=== PATIENT | male | born 1990 | race Caucasian/White ===

== ENCOUNTER 2021-05-20 12:10 | Outpatient (CLI) | payer OTHER ==
[~2021-05-20 12:10] MED LIST: GADOBUTROL 7.5 MMOL/7.5 ML VIAL ONE; IOTHALAMATE MEGLUMINE 50 ML VIAL ONE; lidocaine 1% 20 ML MDV ONE
[2021-05-20] MEDS ORDERED: IOTHALAMATE MEGLUMINE 50 ML VIAL IVP ONE (13:05)
[2021-05-20] MEDS ORDERED: lidocaine 1% 20 ML MDV SUBQ ONE (13:07)
[2021-05-20] MEDS ORDERED: GADOBUTROL 7.5 MMOL/7.5 ML VIAL IVP ONE (13:09)
--- NOTE | 2021-05-20 14:45 | XRAY Report ---
PROCEDURE: Arthrogram Needle Placement INDICATIONS: INJURY OF MUSCLE AND TENDON LEFT SHOULDER TECHNIQUE: The indications, alternatives, benefits, risks, and complications of the procedure were explained to the patient. Written informed consent was obtained and placed in the chart. The shoulder was examin ed fluoroscopically and a site for needle placement chosen for entry into the glenohumeral joint from an anterior approach. The skin was prepped and draped in the usual fashion, and 1% lidocaine infilt rated from skin down to joint capsule. A spinal needle was inserted into the glenohumeral joint, and a small amount of iodinated contrast media injected to confirm intra-articular placement of the need le tip. This was followed by approximately 12 mL dilute solution of a gadolinium containing MR contr ast agent. The needle was removed and a dressing was applied. The patient was given postprocedural instructions and sent to the MR suite for MR imaging. FINDINGS: A single fluoroscopic spot image demonstrates intra-articular location of injected iodinated contrast . IMPRESSION: Successful fluoroscopically guided administration of dilute Gadolinium solution into the glenohumeral joint for MR arthrogram. Reviewed by: Jair Delong MD on 05/20/2021 2:44 PM PST Approved by: Jair Delong MD on 05/20/2021 2:44 PM PST Station ID: [id number]
--- NOTE | 2021-05-20 16:55 | MRI Report ---
PROCEDURE: Arthrogram Shoulder LT INDICATIONS: INJURY OF MUSCLE AND TENDON LEFT SHOULDER TECHNIQUE: After the administration of dilute intra-articular Gadolinium contrast, oblique coronal T1 and T2 spi n echo with fat saturation, oblique sagittal T1 spin echo with and without fat saturation, oblique sa gittal T2 fast spin echo with fat saturation, axial T1 spin echo with fat saturation through the shou lder. COMPARISON: None. Findings: Supraspinatus: Mild to moderate tendinopathy with partial articular surface and interstitial tears. Infraspinatus: Mild tendinopathy with interstitial tear. Subscapularis: No evidence of tear. Teres minor: No evidence of tear. Labrum: Fraying of the superior labrum, compatible with small tear (401-15). Biceps tendon: No evidence of subluxation or tear. Acromioclavicular joint: Normal alignment. Muscle: No significant atrophy. Bones: No significant abnormality. Specifically, no evidence of fracture, contusion, or necrosis. Miscellaneous: Traced subacromial/subdeltoid bursal fluid. No intra-articular bodies. Intact coracoclavicular ligament. IMPRESSION: 1. [id number] supraspinatus tendinopathy with partial articular surface and interstitial tears. 2. Mild infraspinatus tendinopathy with interstitial tear. 3. Fraying of the superior labrum, compatible small tear. 4. Mild subacromial/subdeltoid bursitis. Reviewed by: Thong Henderson MD on 05/20/2021 4:54 PM PST Approved by: Thong Henderson MD on 05/20/2021 4:54 PM PST Station ID: [id number]
== END 2021-05-20 12:11 | disposition home or self-care (01) ==
LOC: DI 12:10
PROVIDERS: ATTEND Physician Assistant
DX: S46.002A Unspecified injury of muscle(s) and tendon(s) of the rotator cuff of left shoulder, initial encounter (principal); M75.112 Incomplete rotator cuff tear or rupture of left shoulder, not specified as traumatic; M75.92 Shoulder lesion, unspecified, left shoulder; M75.52 Bursitis of left shoulder
CPT/HCPCS: 23350; 73222; 77002; A9585; Q9961